=== PATIENT | male | born 1995 | race Caucasian/White ===

== ENCOUNTER 2023-04-23 13:29 | Emergency (ER) | payer BC ==
--- NOTE | 2023-04-23 14:01 | NUR ---
CALLED TO TRIAGE, NO RESPONSE
--- NOTE | 2023-04-23 14:16 | NUR ---
CALLED TO TRIAGE, NO ANSWER
== END 2023-04-23 14:37 | disposition left against medical advice (07) ==
LOC: ER 13:33
DX: Z53.21 Procedure and treatment not carried out due to patient leaving prior to being seen by health care provider (principal)